=== PATIENT | male | born 1955 | race Caucasian/White ===

== ENCOUNTER 2020-06-14 19:14 | Emergency (ER) | payer MEDICARE, OTHER ==
[~2020-06-14] VITALS: Ht 172.7 cm; Wt 77.3 kg
[2020-06-14] MEDS ORDERED: PERTUSS(ACELL),DIPH,TET VAC/PF 0.5 ML SYRINGE IM ONE (19:30)
[2020-06-14] MEDS ORDERED: BACITRACIN 0.9 GM PACKET OINTMENT TP ONE (19:30)
[2020-06-14 20:07] LABS: HEMATOCRIT 29.5 % (41-53); HEMOGLOBIN 9.9 g/dL (13.5-17.5); MEAN CORPUSCULAR HEMOGLOBIN 28.3 pg (26.0-34.0); MEAN CORPUSCULAR HGB CONC 33.6 G/dL (31.0-37.0); MEAN CORPUSCULAR VOLUME 84 fL (80-100); PLATELET COUNT (AUTO) 92 K/uL (150-450); RED CELL DISTRIBUTION WIDTH 17.2 % (11.5-14.5)
[2020-06-14 20:16] LABS: ANION GAP 12 mmol/L (8-16); CALCIUM, TOTAL 7.9 mg/dL (8.8-10.5); CARBON DIOXIDE 23 mmol/L (22-29); CHLORIDE 110 mmol/L (98-107); CREATININE 0.78 mg/dL (0.60-1.30); GLOMERULAR FILTR. RATE CALC > 60 mL/min (>60); GLUCOSE,RANDOM 126 mg/dL (70-110); POTASSIUM 3.8 mmol/L (3.5-5.1); SODIUM SERUM 145 mmol/L (136-145); UREA NITROGEN, BLOOD 10 mg/dL (7-18)
[2020-06-14 20:21] LABS: ALANINE AMINOTRANSFERASE 17 U/L (12-78); ALBUMIN 2.9 g/dL (3.4-5.0); ALKALINE PHOSPHATASE 214 U/L (46-116); ASPARTATE AMINOTRANSFERASE 42 U/L (15-37); BILIRUBIN,TOTAL 0.8 mg/dL (0.1-1.0); TOTAL PROTEIN, SERUM 6.5 g/dL (6.4-8.2)
[2020-06-14 21:02] LABS: LYMPHOCYTES % (MANUAL) 32 % (22-44); MONOCYTES % (MANUAL) 1 % (2-9); SEGMENTED NEUTROPHILS % 67 % (40-70)
[2020-06-14 22:35] VITALS: BP 132/72
== END 2020-06-15 00:18 | disposition home or self-care (01) ==
LOC: EMS 19:14
DX: S09.90XA Unspecified injury of head, initial encounter (principal); F10.129 Alcohol abuse with intoxication, unspecified; Y90.8 Blood alcohol level of 240 mg/100 ml or more; W01.0XXA Fall on same level from slipping, tripping and stumbling without subsequent striking against object, initial encounter; Y93.89 Activity, other specified; Y92.89 Other specified places as the place of occurrence of the external cause; Y99.8 Other external cause status
CPT/HCPCS: 36415; 70450; 72125; 80053; 82962; 85025; 90471; 90715; 99285; G0480